=== PATIENT | male | born 1975 ===

== ENCOUNTER 2024-02-25 09:28 | Inpatient (IN) | payer OTHER ==
[~2024-02-25] VITALS: Ht 167.6 cm; Wt 99.8 kg
[2024-02-25 10:27] LABS: HEMATOCRIT 50.7 % (39.0-48.0); HEMOGLOBIN 17.4 g/dL (13-16.00); MEAN CELL VOLUME 95.8 fL (80.0-100.00); MEAN CORPUSCULAR HEMOGLOBIN 32.9 pg (27.00-32.0); MEAN CORPUSCULAR HGB CONC 34.4 g/dl (32.0-36.0); PLATELET COUNT 178 K/uL (150-450); RED CELL DISTRIBUTION WIDTH 13.3 % (11.5-14.5)
[2024-02-25 10:36] LABS: PH,URINE 5.5 (5.0-8.0); URINE APPEARANCE Clear; URINE BILIRRUBIN Small (NEGATIVE); URINE BLOOD Negative; URINE COLOR Orange; URINE GLUCOSE Negative (NEGATIVE); URINE KETONE Trace (NEGATIVE); URINE LEUKOCYTE Trace; URINE NITRATE Negative; URINE PROTEIN Trace (NEGATIVE)
[2024-02-25 10:41] LABS: URINE BACTERIA 6.2 uL (0.0-1933); URINE RBC 4.1 uL (0.0-20.8); URINE WBC 3.7 uL (0.0-23.2)
[2024-02-25 10:43] LABS: URINE CAST 0.15 uL (0.0-1.40)
[2024-02-25 10:57] LABS: INR 1.07; PROTHROMBIN TIME 11.6 SECONDS (9.0-11.5)
[2024-02-25 11:38] LABS: ALBUMIN 3.9 gm/dL (3.4-5.0); BILIRUBIN TOTAL 1.98 mg/dL (0.3-1.2); CALCIUM 9.7 mg/dL (8.5-10.1); CREATININE SERUM 0.95 mg/dL (0.70-1.30); GFR 84.26; GLOBULINA 4.4 G/DL (2.4-3.5); POTASSIUM 4.15 mEq/L (3.5-5.1); TOTAL PROTEIN 8.3 gm/dL (6.4-8.2)
[2024-03-01] MEDS ORDERED: RINGERS SOLUTION,LACTATED 1,000 ML IV SCH (16:15)
[2024-03-01] MEDS ORDERED: OxyCODONE HCL 5 MG TABLET (ROXICODONE) PO PRN (16:15)
[2024-03-01] MEDS ORDERED: CEFTRIAXONE SODIUM 2,000 MG VIAL IV ONE (16:15)
[2024-03-01] MEDS ORDERED: METRONIDAZOLE/SODIUM CHLORIDE 500 MG/100 ML PIGGYBACK IV ONE (16:15)
[2024-03-01] MEDS ORDERED: ONDANSETRON HCL 2 MG/ML VIAL IV PRN (16:15)
[2024-03-01] MEDS ORDERED: MORPHINE SULFATE 4 MG/ML CARTRIDGE IV PRN (16:15)
[2024-03-01] MEDS ORDERED: DEXTROSE 50 % IN WATER 0.5 G/ML DISP.SYRIN IV PRN (16:15)
[2024-03-01] MEDS ORDERED: POLYETHYLENE GLYCOL 3350 17 GM BLIST.PACK PO SCH (17:00)
[2024-03-01] MEDS ORDERED: GABAPENTIN 300 MG CAPSULE PO SCH (17:00)
[2024-03-01] MEDS ORDERED: HYOSCYAMINE SULFATE 0.125 MG TAB.SUBL SL SCH (17:00)
[2024-03-01] MEDS ORDERED: MORPHINE SULFATE 4 MG/ML VIAL IV ONE ×2 (18:35→21:20)
[2024-03-01 19:20] LABS: HEMATOCRIT 50.4 % (39.0-48.0); HEMOGLOBIN 17.1 g/dL (13-16.00); MEAN CELL VOLUME 95.8 fL (80.0-100.00); MEAN CORPUSCULAR HEMOGLOBIN 32.4 pg (27.00-32.0); MEAN CORPUSCULAR HGB CONC 33.8 g/dl (32.0-36.0); PLATELET COUNT 226 K/uL (150-450); RED BLOOD COUNT 5.26 M/uL (4.00-6.00); RED CELL DISTRIBUTION WIDTH 13.4 % (11.5-14.5)
[2024-03-01 19:49] LABS: ALBUMIN 3.8 gm/dL (3.4-5.0); CALCIUM 9.3 mg/dL (8.5-10.1); CREATININE SERUM 1.09 mg/dL (0.70-1.30); GFR 71.9; MAGNESIUM 2.1 mg/dL (1.8-2.4); PHOSPHOROUS 3.8 mg/dL (2.5-4.9); POTASSIUM 3.89 mEq/L (3.5-5.1)
[2024-03-01] MEDS ORDERED: ACETAMINOPHEN 500 MG GEL..CAP PO SCH (20:00)
[2024-03-01] MEDS ORDERED: FAMOTIDINE/PF 20 MG/2 ML VIAL IV PUSH SCH (21:00)
[2024-03-02 03:30] VITALS: BP 155/96; O2SAT 100
[2024-03-02 08:20] VITALS: BP 171/91; O2SAT 95
[2024-03-02 09:00] LABS: HEMATOCRIT 47.1 % (39.0-48.0); HEMOGLOBIN 16.1 g/dL (13-16.00); MEAN CELL VOLUME 95.6 fL (80.0-100.00); MEAN CORPUSCULAR HEMOGLOBIN 32.6 pg (27.00-32.0); MEAN CORPUSCULAR HGB CONC 34.1 g/dl (32.0-36.0); PLATELET COUNT 206 K/uL (150-450); RED BLOOD COUNT 4.93 M/uL (4.00-6.00)
[2024-03-02 10:17] LABS: ALBUMIN 3.5 gm/dL (3.4-5.0); CREATININE SERUM 0.84 mg/dL (0.70-1.30); GFR 97.12; PHOSPHOROUS 3.1 mg/dL (2.5-4.9); POTASSIUM 4.36 mEq/L (3.5-5.1)
[2024-03-02] MEDS ORDERED: MORPHINE SULFATE 4 MG/ML VIAL IV STA (12:32)
[2024-03-02 16:00] VITALS: BP 136/92; O2SAT 95
[2024-03-02] MEDS ORDERED: ENOXAPARIN SODIUM 40 MG/0.4 ML SYRINGE SUBCUTANEO SCH (17:00)
[2024-03-03] VITALS: BP 128/79; O2SAT 95
[2024-03-03 08:18] VITALS: BP 127/87; O2SAT 97
[2024-03-03] MEDS ORDERED: ENOXAPARIN SODIUM 40 MG/0.4 ML SYRINGE SUBCUTANEO SCH (09:00)
[2024-03-03 16:00] VITALS: BP 138/82; O2SAT 94
[2024-03-04] VITALS: BP 129/82; O2SAT 96
[2024-03-04 08:00] VITALS: BP 160/90; O2SAT 96
[2024-03-04] MEDS ORDERED: TRAM1TAB98 PO (12:29)
[2024-03-04] MEDS ORDERED: NEURONTIN300 MG PO (12:29)
[2024-03-04] MEDS ORDERED: INTESTINEX680 M1 PO (12:29)
== END 2024-03-04 14:41 | disposition home or self-care (01) | DRG 331 ==
LOC: SURH 03-01 09:30 → O/R 03-01 10:01 → SURH 03-01 16:30
PROVIDERS: ADMIT Surgery; ATTEND Surgery
PROC: 0DBP4ZZ Excision of Rectum, Percutaneous Endoscopic Approach (ICD-10-PCS; 2024-03-01)
PROC: 0DJD8ZZ Inspection of Lower Intestinal Tract, Via Natural or Artificial Opening Endoscopic (ICD-10-PCS; 2024-03-01)
PROC: 0DTN4ZZ Resection of Sigmoid Colon, Percutaneous Endoscopic Approach (ICD-10-PCS; principal; 2024-03-01 16:30)
DX: K57.20 Diverticulitis of large intestine with perforation and abscess without bleeding (principal); R10.32 Left lower quadrant pain